=== PATIENT | male | born 1965 | race Caucasian/White ===

== ENCOUNTER 2016-11-19 19:22 | Emergency (ER) | payer OTHER ==
[2016-11-19] MEDS ORDERED: NORCO 5/325 MG PO ONE (19:50)
[2016-11-19] MEDS ORDERED: Augmentin 875-125 Tablet PO ONE (19:50)
[2016-11-19] MEDS ORDERED: NORCO 5/325 MG ONE ×2 (19:55→20:02)
[2016-11-19] MEDS ORDERED: Augmentin 875-125 Tablet ONE (19:55)
--- NOTE | 2016-11-19 19:56 | ERPHSYRPT ---
- History of Present Illness Time Seen by Provider: 11/19/16 19:41 Source: patient Exam Limitations: no limitations Patient Subjective Stated Complaint: co right ear pain today after swimming and skiing no fever no vomiting pos difficulty hearing no drainage Triage Nursing Assessment: pt is awake and alert and able to answer questions ambulated withut difficulty Physician History: PT WAS WATER SKIING TODAY AT [facility] AND FELL @ 1400 AT A SLOW SPEED AND HAS HAD RIGHT EAR PAIN SINCE; DENIES FEVER, CHEST PAIN, SHORTNESS OF AIR, NECK PAIN, BACK PAIN, TINGLING/NUMBNESS, WEAKNESS. Allergies/Adverse Reactions: No Known Drug Allergies Allergy (Unverified 11/19/16 19:45) - Review of Systems Constitutional: No Fever Ears, Nose, & Throat: Ear Pain (RIGHT) Respiratory: No Dyspnea Cardiac: No Chest Pain Musculoskeletal: No Back Pain, No Neck Pain Neurological: No Focal Weakness, No Headache, No Sensory Changes All Other Systems: Reviewed and Negative - Past Medical History Pertinent Past Medical History: No - Past Surgical History Past Surgical History: No - Social History Smoking Status: Never smoker Exposure to second hand smoke: No Drug Use: none Patient Lives Alone: No - Nursing Vital Signs Nursing Vital Signs: Initial Vital Signs Temperature 97.4 F 11/19/16 19:40 Pulse Rate 72 11/19/16 19:40 Respiratory Rate 16 11/19/16 19:40 Blood Pressure 139/92 11/19/16 19:40 O2 Sat by Pulse Oximetry 99 11/19/16 19:40 Pain Scale Pain Intensity 4 - Physical Exam General Appearance: alert Eye Exam: bilateral eye: PERRL, EOMI Ear Exam: right ear: TM red, left ear: TM normal Nasal Exam: normal inspection Throat Exam: normal Neck Exam: normal inspection Cardiovascular/Respiratory Exam: normal breath sounds, heart sounds normal Neurologic Exam: alert, cooperative Skin Exam: warm, dry SpO2 Interpretation: normal SpO2: 99 Oxygen Delivery: Room Air - Course Nursing assessment & vital signs reviewed: Yes Ordered Tests: Medication Summary Generic Name Dose Route Start Last Admin Trade Name Freq PRN Reason Stop Dose Admin Hydrocodone Bitart/Acetaminophen 2 tab 11/19/16 19:50 Pe Ell 5/325 Mg PO 11/19/16 19:51 SENT HOME W/ PATIENT ONE Amoxicillin/Clavulanate Potassium 875 mg 11/19/16 19:50 Augmentin 875-125 Tablet PO 11/19/16 19:51 STAT ONE - Departure Time of Disposition: 19:57 Departure Disposition: Home Clinical Impression: ROM Condition: Stable Critical Care Time: No Instructions: Otitis Media (Middle Ear Infection) Additional Instructions: FOLLOW UP WITH PRIVATE DOCTOR TOMORROW. Prescriptions: Naproxen [Naprosyn] 500 mg PO Q12H PRN PRN #20 tablet PRN Reason: Pain Amox Tr/Potass Clav. 875 mg [Augmentin 875-125 Tablet] 875 mg PO BID #20 tablet
[2016-11-19 20:18] VITALS: BP 139/85; PULSE 65; O2SAT 98
== END 2016-11-19 20:16 | disposition home or self-care (01) ==
LOC: ED 19:22
DX: H66.91 Otitis media, unspecified, right ear (principal)
CPT/HCPCS: 99283; A9270-GY